=== PATIENT | male | born 1945 | race Caucasian/White ===

== ENCOUNTER 2019-03-30 10:06 | Inpatient (IN) ==
[~2019-03-30 10:06] MED LIST: ASPIRIN 325 MG TABLET PO ONE; DIAZEPAM 5 MG TABLET PO ONE; MAGNESIUM SULF RIDER 2 GM in PREMIX 1 EACH IV PRN; POTASSIUM CHLORIDE RIDER 10 MEQ in PREMIX 1 EACH IV PRN; SODIUM CHLORIDE 0.9% 1,000 ML IV SCH; diphenhydrAMINE CAP 25 MG CAPSULE PO ONE
[2019-03-30] MEDS ORDERED: DIAZEPAM 5 MG TABLET ONE (10:45)
[2019-03-30] MEDS ORDERED: diphenhydrAMINE CAP 25 MG CAPSULE ONE (10:45)
[2019-03-30] MEDS ORDERED: LIDOCAINE 1% 20 ML VIAL ONE (10:46)
[2019-03-30] MEDS ORDERED: NITROGLYCERIN DRIP 50 MG/250 ML BOTTLE IV ONE (10:46)
[2019-03-30] MEDS ORDERED: HEPARIN/NACL 0.9% 2 UNITS/ML 1,000 ML IV ONE (10:46)
[2019-03-30] MEDS ORDERED: VERAPAMIL 5 MG/2 ML VIAL ONE (10:47)
[2019-03-30 10:54] LABS: Basophils # 0.1 10*3/uL (0.0-0.2); Basophils % 0.7 % (0.0-0.8); Eosinophils # 0.2 10*3/uL (0.0-0.87); Eosinophils % 3.6 % (0.00-10.9); Hematocrit 45.9 VOL% (42.0-52.0); Hemoglobin 14.9 GM/DL (14.0-18.0); Immature Granulocytes % 0.4 %; Immature Granulocytes Absolute 0.03 #; Lymphocytes # 2.1 10*3/uL (1.4-4.0); Lymphocytes % 31.7 % (21.2-54.2); Mean Corpuscular HGB Conc 32.5 GM/DL (32-36); Mean Corpuscular Volume 86.4 FL (87-102); Mean Platelet Volume 9.5 FL (9.6-12.0); Monocytes % 11.7 % (1.7-12.7); NRBC # 0.02 10*3/uL; Neutrophils % 51.9 % (38.7-73.9); Platelet Count 179 T/CUMM (130-400); Red Blood Count 5.31 MC/CUMM (3.8-5.5); Red Cell Distribution Width 14.4 % (9.3-17.3); White Blood Count 6.8 T/CUMM (4-12)
[2019-03-30 11:05] LABS: PT Patient Result 10.6 SECS
[2019-03-30 11:30] LABS: Albumin 3.8 G/DL (3.4-5.0); Bilirubin,Total 0.6 MG/DL (0.2-1.0); Calcium 9.2 MG/DL (8.5-10.1); Osmolality,Calculated 267.2 MOS/KG (273-304); Total Protein 7.4 G/DL (6.4-8.3)
[2019-03-30] MEDS ORDERED: MIDAZOLAM 2 MG/2 ML VIAL ONE (11:57)
[2019-03-30] MEDS ORDERED: HYDROmorphone 2 MG/1 ML VIAL ONE (11:57)
[2019-03-30] MEDS ORDERED: ENOXAPARIN 30 MG/0.3 ML SYRINGE ONE (12:05)
[2019-03-30] MEDS ORDERED: BIVALIRUDIN 250 MG VIAL IV ONE (12:14)
[2019-03-30] MEDS: ATORVASTATIN 10 MG TABLET PO SCH (21:50)
[2019-03-30] MEDS: VITAMIN E 400 UNIT CAPSULE PO SCH (21:50)
[2019-03-30] MEDS: CYANOCOBALAMIN 500 MCG TABLET PO SCH (21:52)
[2019-03-30] MEDS: HEPARIN DRIP 25,000 UNITS/500 ML PREMIX IV SCH (21:52)
[2019-03-31] MEDS ORDERED: HEPARIN 5,000 UNIT/1 ML VIAL IV ONE (06:33)
[2019-03-31 08:32] LABS: Basophils # 0.1 10*3/uL (0.0-0.2); Basophils % 0.7 % (0.0-0.8); Eosinophils # 0.3 10*3/uL (0.0-0.87); Eosinophils % 3.6 % (0.00-10.9); Hematocrit 46.7 VOL% (42.0-52.0); Hemoglobin 15.1 GM/DL (14.0-18.0); Immature Granulocytes % 0.4 %; Immature Granulocytes Absolute 0.03 #; Lymphocytes # 1.9 10*3/uL (1.4-4.0); Lymphocytes % 27.1 % (21.2-54.2); Mean Corpuscular HGB Conc 32.3 GM/DL (32-36); Mean Corpuscular Volume 86.5 FL (87-102); Mean Platelet Volume 10.1 FL (9.6-12.0); Monocytes % 12.2 % (1.7-12.7); Platelet Count 173 T/CUMM (130-400); Red Cell Distribution Width 14.6 % (9.3-17.3); White Blood Count 6.9 T/CUMM (4-12)
[2019-03-31 08:59] LABS: Calcium 8.7 MG/DL (8.5-10.1); Osmolality,Calculated 268.2 MOS/KG (273-304)
[2019-03-31] MEDS ORDERED: KRILL OM DHA EPA PHOSPHO AST PO SCH (19:00)
[2019-03-31] MEDS: HEPARIN DRIP 25,000 UNITS/500 ML PREMIX IV SCH (21:58)
[2019-03-31] MEDS: ASPIRIN EC 81 MG TABLET PO SCH (22:00)
[2019-03-31] MEDS: ATORVASTATIN 10 MG TABLET PO SCH (22:01)
[2019-03-31] MEDS: CYANOCOBALAMIN 500 MCG TABLET PO SCH (22:01)
[2019-03-31] MEDS: TAMSULOSIN 0.4 MG CAPSULE PO SCH (22:01)
[2019-03-31] MEDS: EZETIMIBE 10 MG TABLET PO SCH (22:01)
[2019-03-31] MEDS: VITAMIN E 400 UNIT CAPSULE PO SCH (22:01)
[2019-04-01 01:52] LABS: Basophils % 0.6 % (0.0-0.8); Eosinophils # 0.3 10*3/uL (0.0-0.87); Hemoglobin 14.8 GM/DL (14.0-18.0); Immature Granulocytes % 0.3 %; Immature Granulocytes Absolute 0.02 #; Lymphocytes % 29.7 % (21.2-54.2); Mean Corpuscular HGB Conc 33.6 GM/DL (32-36); Mean Corpuscular Volume 84.6 FL (87-102); Mean Platelet Volume 9.8 FL (9.6-12.0); Monocytes % 13.2 % (1.7-12.7); Neutrophils % 52.2 % (38.7-73.9); Platelet Count 160 T/CUMM (130-400); Red Cell Distribution Width 14.4 % (9.3-17.3); White Blood Count 6.7 T/CUMM (4-12)
[2019-04-01 02:09] LABS: Calcium 8.3 MG/DL (8.5-10.1); Osmolality,Calculated 272.2 MOS/KG (273-304)
[2019-04-01] MEDS: CHLORHEXIDINE 0.12% ORAL RINSE 60 ML BOTTLE SWISH/SPIT SCH ×2 (08:32→20:17)
[2019-04-01] MEDS: CHLORHEXIDINE 4% SOLN 118 ML BOTTLE TOP SCH ×3 (08:36→21:42)
[2019-04-01] MEDS: HEPARIN DRIP 25,000 UNITS/500 ML PREMIX IV SCH (20:16)
[2019-04-01] MEDS: ASPIRIN EC 81 MG TABLET PO SCH (20:16)
[2019-04-01] MEDS: TAMSULOSIN 0.4 MG CAPSULE PO SCH (20:17)
[2019-04-01] MEDS: CYANOCOBALAMIN 500 MCG TABLET PO SCH (20:17)
[2019-04-01] MEDS: ATORVASTATIN 10 MG TABLET PO SCH (20:17)
[2019-04-01] MEDS: EZETIMIBE 10 MG TABLET PO SCH (20:17)
[2019-04-01] MEDS: VITAMIN E 400 UNIT CAPSULE PO SCH (20:17)
[2019-04-02] MEDS ORDERED: CEFUROXIME INJ 1,500 MG in SYRINGE 1 EACH IV ONE (00:01)
[2019-04-02] MEDS ORDERED: PAPAVERINE 60 MG/2 ML VIAL ONE (04:21)
[2019-04-02] MEDS ORDERED: TISSUE ADHESIVE 1 EACH APPLICATOR TOP ONE (04:21)
[2019-04-02] MEDS ORDERED: VANCOMYCIN 1,000 MG VIAL ONE (04:22)
[2019-04-02] MEDS: CHLORHEXIDINE 4% SOLN 118 ML BOTTLE TOP SCH (04:51)
[2019-04-02] MEDS ORDERED: DIAZEPAM 5 MG TABLET PO ONE ×2 (05:00→06:00)
[2019-04-02] MEDS ORDERED: FAMOTIDINE 20 MG TABLET PO ONE ×2 (05:00→06:00)
[2019-04-02] MEDS: SODIUM CHLORIDE 0.9% 1,000 ML IV SCH ×2 (05:27→15:03)
[2019-04-02 07:34] LABS: ABG Base Excess -2.3 MMOL/L (-2.5-2.5); ABG HCO3 21.1 MMOL/L (20-26); ABG Oxygen Saturation 99.5 % (95-100); ABG PCO2 32.4 MM HG (35-48); ABG PH 7.431 (7.35-7.45); ABG PO2 424.4 MM HG (80-95); ABG TCO2 22.1 MMOL/L (23-27); Glucose Heart Surgery 140 MG/DL (74-106); Hemoglobin Heart Surgery 14.6 G/DL (14.0-18.0); Ionized Calcium Arterial 1.26 MMOL/L (1.21-1.46); PCO2 Patient Temp Arterial 32.4 MMHG; PH Patient Temp Arterial 7.431; PO2 Patient Temp Arterial 424.4 MM HG; Patient Temperature 37 CELCIUS; Sodium Heart/CVR 132 MMOL/L (135-145)
[2019-04-02 08:18] LABS: Apearance,Urine CLEAR (Clear); Bilirubin,Urine Negative (Negative); Blood, Urine Negative (Negative); Glucose,Urine (UA) Negative (Negative); Ketones,Urine Negative (Negative); Mucus,Urine Occasional /LPF (Occasional); Nitrite,Urine Negative (Negative); Protein,Urine Negative; RBC,Urine <1 /HPF (0-4); Urine Color Yellow (Yellow); Urine Specific Gravity 1.021 (1.001-1.035); Urine Urobilinogen < 2.0 EU/DL (0.2-1.0)
[2019-04-02 09:08] LABS: Hematocrit Heart Surgery 32.2 PERCENT (42-52); Hemoglobin Heart Surgery 10.4 G/DL (14.0-18.0); PCO2 Patient Temp Venous 36.8 MM HG; PH Patient Temp Venous 7.428; PO2 Patient Temp Venous 45.9 MM HG; Potassium Heart/CVR 5.7 MMOL/L (3.5-5.1); VBG Base Excess 0.3 MEQ/L (0-4); VBG HCO3 24.5 MEQ/L (24-28); VBG Oxygen Saturation 84.6 %; VBG PCO2 38.7 MMHG (41-51); VBG PH 7.414; VBG PO2 49.1 MMHG (17-40)
[2019-04-02 09:37] LABS: Hemoglobin Heart Surgery 11.7 G/DL (14.0-18.0); PCO2 Patient Temp Venous 29.9 MM HG; PH Patient Temp Venous 7.49; VBG Base Excess -0.7 MEQ/L (0-4); VBG HCO3 22.9 MEQ/L (24-28); VBG PCO2 34.1 MMHG (41-51); VBG PH 7.445; VBG PO2 51.8 MMHG (17-40)
[2019-04-02] MEDS ORDERED: THROMBIN TOPICAL (RECOMBINANT) 5,000 UNIT VIAL TOP ONE (10:06)
[2019-04-02] MEDS ORDERED: MANNITOL 100 GM/500 ML BAG IV ONE (10:14)
[2019-04-02 10:15] LABS: ABG HCO3 23.6 MMOL/L (20-26); ABG PCO2 40.5 MM HG (35-48); ABG PH 7.381 (7.35-7.45); ABG TCO2 20.9 MMOL/L (23-27); Glucose Heart Surgery 304 MG/DL (74-106); Hematocrit Heart Surgery 40.9 PERCENT (42-52); Hemoglobin Heart Surgery 13.3 G/DL (14.0-18.0); Ionized Calcium Arterial 1.31 MMOL/L (1.21-1.46); PCO2 Patient Temp Arterial 40.5 MMHG; PH Patient Temp Arterial 7.381; Patient Temperature 37 CELCIUS; Potassium Heart/CVR 4.9 MMOL/L (3.5-5.1); Sodium Heart/CVR 128 MMOL/L (135-145)
[2019-04-02] MEDS ORDERED: PROTAMINE SULFATE 50 MG/5 ML VIAL IV ONE (10:15)
[2019-04-02] MEDS ORDERED: PROTAMINE SULFATE 250 MG/25 ML VIAL IV ONE (10:15)
[2019-04-02] MEDS ORDERED: MAGNESIUM SULFATE 5 GM/10 ML VIAL IV ONE (10:15)
[2019-04-02] MEDS ORDERED: methylPREDNISolone SOD SUC 1,000 MG/8 ML VIAL ONE (10:15)
[2019-04-02] MEDS ORDERED: HEPARIN 10,000 UNIT/10 ML VIAL ONE ×2 (10:15→11:09)
[2019-04-02] MEDS ORDERED: FUROSEMIDE 20 MG/2 ML VIAL ONE (10:15)
[2019-04-02] MEDS ORDERED: ALBUMIN 25% 25 GM/100 ML VIAL IV ONE (10:15)
[2019-04-02] MEDS ORDERED: DEXTROSE 5% KCL 20 MEQ 20 MEQ/1,000 ML BAG IV ONE (10:15)
[2019-04-02] MEDS ORDERED: SODIUM BICARBONATE 50 MEQ/50 ML VIAL IV ONE (10:15)
[2019-04-02] MEDS ORDERED: CALCIUM CHLORIDE 1,000 MG/10 ML SYRINGE IV ONE (10:44)
[2019-04-02] MEDS ORDERED: SODIUM CHLORIDE 0.9% 250 ML IV PRN (11:02)
[2019-04-02] MEDS ORDERED: CHLORHEXIDINE 4% SOLN 118 ML BOTTLE TOP PRN (11:02)
[2019-04-02] MEDS ORDERED: MAGNESIUM SULF RIDER 4 GM in PREMIX 1 EACH IV PRN (11:02)
[2019-04-02] MEDS ORDERED: CALCIUM CHLORIDE 1,000 MG/10 ML SYRINGE IV PRN (11:02)
[2019-04-02] MEDS ORDERED: ACETAMINOPHEN 650 MG SUPP RECTAL PRN (11:02)
[2019-04-02] MEDS ORDERED: MIDAZOLAM 2 MG/2 ML VIAL IV PRN (11:02)
[2019-04-02] MEDS ORDERED: ONDANSETRON 4 MG/2 ML VIAL IV PRN (11:02)
[2019-04-02] MEDS ORDERED: POTASSIUM CHLORIDE RIDER 10 MEQ in PREMIX 1 EACH IV PRN (11:02)
[2019-04-02] MEDS ORDERED: DEXTROSE 50% 25 GM/50 ML SYRINGE IV PRN ×2 (11:02)
[2019-04-02] MEDS ORDERED: SEVOFLURANE 1 UNIT/15 MINUTE INH ONE (11:09)
[2019-04-02] MEDS ORDERED: CALCIUM CHLORIDE 1,000 MG/10 ML VIAL IV ONE (11:09)
[2019-04-02] MEDS ORDERED: HEPARIN/NACL 0.9% 2 UNITS/ML 500 ML IV ONE (11:09)
[2019-04-02] MEDS ORDERED: ePHEDrine 50 MG/ML AMP ONE (11:10)
[2019-04-02] MEDS ORDERED: MIDAZOLAM 10 MG/2 ML VIAL ONE (11:10)
[2019-04-02] MEDS ORDERED: ESMOLOL 100 MG/10 ML VIAL IV ONE (11:10)
[2019-04-02] MEDS ORDERED: VECURONIUM 10 MG VIAL IV ONE (11:10)
[2019-04-02] MEDS ORDERED: PHENYLEPHRINE 10 MG/1 ML VIAL IV ONE (11:10)
[2019-04-02] MEDS ORDERED: SUFentanil 250 MCG/5 ML AMP ONE (11:10)
[2019-04-02] MEDS ORDERED: NITROGLYCERIN DRIP 50 MG/250 ML BOTTLE IV ONE (11:10)
[2019-04-02] MEDS ORDERED: SODIUM CHLORIDE 0.9% 2,000 ML IV ONE (11:11)
[2019-04-02] MEDS ORDERED: SODIUM CHLORIDE 0.9% 100 ML IV ONE (11:11)
[2019-04-02] MEDS ORDERED: SODIUM CHLORIDE 0.9% 250 ML IV ONE (11:11)
[2019-04-02] MEDS ORDERED: LACTATED RINGERS 2,000 ML IV ONE (11:11)
[2019-04-02] MEDS ORDERED: INSULIN REGULAR DRIP 100 ML IV SCH (11:30)
[2019-04-02 11:43] LABS: ABG Base Excess -3.3 MMOL/L (-2.5-2.5); ABG HCO3 21.6 MMOL/L (20-26); ABG Oxygen Saturation 97.6 % (95-100); ABG PCO2 42.7 MM HG (35-48); ABG PH 7.332 (7.35-7.45); ABG TCO2 19.8 MMOL/L (23-27); Glucose Heart Surgery 247 MG/DL (74-106); Hematocrit Heart Surgery 40.8 PERCENT (42-52); Hemoglobin Heart Surgery 13.3 G/DL (14.0-18.0); Potassium Heart/CVR 3.6 MMOL/L (3.5-5.1)
[2019-04-02 11:48] LABS: VBG Base Excess -2.8 MEQ/L (0-4); VBG HCO3 21.5 MEQ/L (24-28); VBG Oxygen Saturation 68.9 %; VBG PCO2 48.2 MMHG (41-51); VBG PH 7.305
[2019-04-02 11:53] LABS: Basophils # 0.1 10*3/uL (0.0-0.2); Basophils % 0.4 % (0.0-0.8); Eosinophils # 0.1 10*3/uL (0.0-0.87); Eosinophils % 0.8 % (0.00-10.9); Hematocrit 40.3 VOL% (42.0-52.0); Hemoglobin 12.9 GM/DL (14.0-18.0); Immature Granulocytes % 0.6 %; Immature Granulocytes Absolute 0.08 #; Lymphocytes # 1.2 10*3/uL (1.4-4.0); Lymphocytes % 8.9 % (21.2-54.2); Mean Corpuscular Volume 88.6 FL (87-102); Mean Platelet Volume 9.4 FL (9.6-12.0); Monocytes % 6.3 % (1.7-12.7); Platelet Count 151 T/CUMM (130-400); Red Blood Count 4.55 MC/CUMM (3.8-5.5); Red Cell Distribution Width 14.6 % (9.3-17.3)
[2019-04-02 12:03] LABS: Blood Urea Nitrogen 9 MG/DL (7-18); Calcium 9.2 MG/DL (8.5-10.1); Glucose 226 MG/DL (74-106)
[2019-04-02] MEDS ORDERED: PHENYLEPHRINE DRIP 40 MG/250 ML PREMIX IV PRN (12:04)
[2019-04-02 12:05] LABS: INR 1.1; PT Patient Result 12.2 SECS; Partial Thromboplastin Time 26.4 SECS (0-40)
[2019-04-02] MEDS: ALBUMIN 5% 12.5 GM in PREMIX 1 EACH IV PRN ×6 (12:05→17:27)
[2019-04-02] MEDS: SODIUM CHLORIDE 0.45% 1,000 ML IV SCH ×3 (12:05→23:33)
[2019-04-02] MEDS: POTASSIUM CHLORIDE RIDER 20 MEQ in PREMIX 1 EACH IV PRN (12:23)
[2019-04-02] MEDS: INSULIN REGULAR 100 UNIT/ML IV PRN ×2 (14:22→16:43)
[2019-04-02] MEDS ORDERED: LACTATED RINGERS 500 ML IV ONE (14:25)
[2019-04-02] MEDS: CHLORHEXIDINE 0.12% ORAL RINSE 60 ML BOTTLE SWISH/SPIT SCH ×2 (15:04→21:28)
[2019-04-02 16:14] LABS: ABG Base Excess -1.5 MMOL/L (-2.5-2.5); ABG HCO3 23.1 MMOL/L (20-26); ABG PCO2 38.8 MM HG (35-48); ABG PH 7.385 (7.35-7.45); ABG TCO2 20.7 MMOL/L (23-27); Glucose Heart Surgery 173 MG/DL (74-106); Hematocrit Heart Surgery 35.8 PERCENT (42-52); Hemoglobin Heart Surgery 11.6 G/DL (14.0-18.0); Potassium Heart/CVR 4.2 MMOL/L (3.5-5.1)
[2019-04-02] MEDS ORDERED: ASPIRIN 325 MG TABLET PO ONE (18:02)
[2019-04-02] MEDS: CEFUROXIME INJ 1,500 MG in SYRINGE 1 EACH IV SCH (18:40)
[2019-04-02] MEDS: MORPHINE 10 MG/1 ML VIAL IV PRN ×2 (21:31→23:30)
[2019-04-03] MEDS: SODIUM CHLORIDE 0.45% 1,000 ML IV SCH ×2 (00:12→07:54)
[2019-04-03] MEDS: ALBUMIN 5% 12.5 GM in PREMIX 1 EACH IV PRN (03:46)
[2019-04-03 04:47] LABS: Basophils % 0.1 % (0.0-0.8); Hemoglobin 9.4 GM/DL (14.0-18.0); Immature Granulocytes % 0.5 %; Immature Granulocytes Absolute 0.07 #; Lymphocytes % 7.1 % (21.2-54.2); Mean Corpuscular HGB Conc 31.3 GM/DL (32-36); Mean Platelet Volume 9.8 FL (9.6-12.0); Monocytes % 9.9 % (1.7-12.7); Neutrophils % 82.4 % (38.7-73.9); Platelet Count 125 T/CUMM (130-400); Red Blood Count 3.37 MC/CUMM (3.8-5.5); Red Cell Distribution Width 14.8 % (9.3-17.3); White Blood Count 13.7 T/CUMM (4-12)
[2019-04-03 05:03] LABS: Calcium 7.9 MG/DL (8.5-10.1); Osmolality,Calculated 271.8 MOS/KG (273-304)
[2019-04-03] MEDS: POTASSIUM CHLORIDE RIDER 20 MEQ in PREMIX 1 EACH IV PRN ×2 (05:12→06:06)
[2019-04-03] MEDS: MAGNESIUM SULF RIDER 2 GM in PREMIX 1 EACH IV PRN ×2 (05:28→06:42)
[2019-04-03 05:30] LABS: Band Neutrophils 2 % (0-10); Hypochromasia 1+; Lymphocytes 9 % (20-55); Platelet Estimate Decreased; Segmented Neutrophils 82 % (50-85); Total Cells Counted 100
[2019-04-03] MEDS: MORPHINE 10 MG/1 ML VIAL IV PRN (07:20)
[2019-04-03] MEDS: CEFUROXIME INJ 1,500 MG in SYRINGE 1 EACH IV SCH ×2 (07:30→18:46)
[2019-04-03] MEDS: INSULIN REGULAR 100 UNIT/ML SUBCUT SCH ×4 (09:11→21:40)
[2019-04-03] MEDS: ASPIRIN EC 325 MG TABLET PO SCH (09:50)
[2019-04-03] MEDS: FUROSEMIDE 40 MG TABLET PO SCH (09:51)
[2019-04-03] MEDS: LANSOPRAZOLE ODT 30 MG TABLET PO SCH (09:51)
[2019-04-03] MEDS: CHLORHEXIDINE 0.12% ORAL RINSE 60 ML BOTTLE SWISH/SPIT SCH ×2 (09:52→21:39)
[2019-04-03] MEDS ORDERED: FUROSEMIDE 40 MG/4 ML VIAL IV ONE (09:55)
[2019-04-03] MEDS: CLOPIDOGREL 75 MG TABLET PO SCH (10:07)
[2019-04-03] MEDS: MORPHINE 4 MG/1 ML VIAL IV PRN (12:22)
[2019-04-03] MEDS: ASCORBIC ACID 500 MG TABLET PO SCH ×2 (12:22→21:40)
[2019-04-03] MEDS: LEVALBUTEROL 0.31 MG/3 ML NEB RESP TX SCH ×4 (12:40→23:13)
[2019-04-03] MEDS ORDERED: LEVALBUTEROL 0.31 MG/3 ML NEB RESP TX ONE (17:23)
[2019-04-03] MEDS ORDERED: ALBUTEROL 0.63 MG/3 ML NEB RESP TX ONE (17:23)
[2019-04-03] MEDS ORDERED: APPLE CIDER VINEGAR 600 MG PO SCH (19:00)
[2019-04-03] MEDS: ATORVASTATIN 40 MG TABLET PO SCH (21:40)
[2019-04-04] MEDS: LEVALBUTEROL 0.31 MG/3 ML NEB RESP TX SCH ×6 (02:29→23:21)
[2019-04-04 05:38] LABS: Basophils % 0.1 % (0.0-0.8); Hematocrit 30.9 VOL% (42.0-52.0); Hemoglobin 9.7 GM/DL (14.0-18.0); Immature Granulocytes % 0.7 %; Immature Granulocytes Absolute 0.11 #; Lymphocytes % 6.6 % (21.2-54.2); Mean Corpuscular HGB Conc 31.4 GM/DL (32-36); Mean Platelet Volume 10.3 FL (9.6-12.0); Monocytes % 10.5 % (1.7-12.7); Neutrophils % 82.1 % (38.7-73.9); Platelet Count 134 T/CUMM (130-400); Red Blood Count 3.47 MC/CUMM (3.8-5.5); Red Cell Distribution Width 15.1 % (9.3-17.3); White Blood Count 15.5 T/CUMM (4-12)
[2019-04-04 05:55] LABS: Calcium 8.1 MG/DL (8.5-10.1); Osmolality,Calculated 266.7 MOS/KG (273-304)
[2019-04-04] MEDS: FUROSEMIDE 40 MG TABLET PO SCH (08:18)
[2019-04-04] MEDS: CLOPIDOGREL 75 MG TABLET PO SCH (08:18)
[2019-04-04] MEDS: ASCORBIC ACID 500 MG TABLET PO SCH ×2 (08:18→21:35)
[2019-04-04] MEDS: ASPIRIN EC 325 MG TABLET PO SCH (08:18)
[2019-04-04] MEDS: CHLORHEXIDINE 0.12% ORAL RINSE 60 ML BOTTLE SWISH/SPIT SCH ×2 (08:19→21:35)
[2019-04-04] MEDS: LANSOPRAZOLE ODT 30 MG TABLET PO SCH (08:19)
[2019-04-04] MEDS: INSULIN REGULAR 100 UNIT/ML SUBCUT SCH ×4 (08:19→21:36)
[2019-04-04] MEDS: ZALEPLON 5 MG CAPSULE PO PRN (21:34)
[2019-04-04] MEDS: ATORVASTATIN 40 MG TABLET PO SCH (21:35)
[2019-04-05] MEDS: LEVALBUTEROL 0.31 MG/3 ML NEB RESP TX SCH ×6 (03:47→23:48)
[2019-04-05 05:24] LABS: Basophils % 0.1 % (0.0-0.8); Eosinophils % 0.2 % (0.00-10.9); Hematocrit 32.4 VOL% (42.0-52.0); Hemoglobin 10.6 GM/DL (14.0-18.0); Immature Granulocytes Absolute 0.14 #; Lymphocytes # 1.5 10*3/uL (1.4-4.0); Lymphocytes % 11.3 % (21.2-54.2); Mean Corpuscular HGB Conc 32.7 GM/DL (32-36); Mean Corpuscular Volume 87.8 FL (87-102); Mean Platelet Volume 10.6 FL (9.6-12.0); Monocytes % 12.7 % (1.7-12.7); Neutrophils % 74.7 % (38.7-73.9); Platelet Count 149 T/CUMM (130-400); Red Blood Count 3.69 MC/CUMM (3.8-5.5); Red Cell Distribution Width 15.1 % (9.3-17.3); White Blood Count 13.7 T/CUMM (4-12)
[2019-04-05 05:51] LABS: Calcium 8.2 MG/DL (8.5-10.1)
[2019-04-05] MEDS: CHLORHEXIDINE 0.12% ORAL RINSE 60 ML BOTTLE SWISH/SPIT SCH ×2 (08:18→20:45)
[2019-04-05] MEDS: INSULIN REGULAR 100 UNIT/ML SUBCUT SCH ×4 (08:18→20:45)
[2019-04-05] MEDS: ASCORBIC ACID 500 MG TABLET PO SCH ×2 (08:19→20:45)
[2019-04-05] MEDS: CLOPIDOGREL 75 MG TABLET PO SCH (08:19)
[2019-04-05] MEDS: ASPIRIN EC 325 MG TABLET PO SCH (08:19)
[2019-04-05] MEDS: FUROSEMIDE 40 MG TABLET PO SCH (08:19)
[2019-04-05] MEDS: LANSOPRAZOLE ODT 30 MG TABLET PO SCH (08:19)
[2019-04-05] MEDS ORDERED: FUROSEMIDE 40 MG/4 ML VIAL IV ONE (17:13)
[2019-04-05] MEDS: methylPREDNISolone SOD SUC 40 MG/1 ML VIAL IV SCH (17:42)
[2019-04-05] MEDS ORDERED: METOPROLOL TARTRATE 5 MG/5 ML VIAL IV ONE (19:22)
[2019-04-05] MEDS: METOPROLOL TARTRATE 25 MG TABLET PO SCH (20:44)
[2019-04-05] MEDS: ATORVASTATIN 40 MG TABLET PO SCH (20:45)
[2019-04-06] MEDS: ZALEPLON 5 MG CAPSULE PO PRN ×2 (00:04→22:43)
[2019-04-06] MEDS: methylPREDNISolone SOD SUC 40 MG/1 ML VIAL IV SCH ×3 (02:01→17:01)
[2019-04-06] MEDS: LEVALBUTEROL 0.31 MG/3 ML NEB RESP TX SCH ×6 (03:26→23:32)
[2019-04-06 04:31] LABS: Basophils % 0.1 % (0.0-0.8); Hematocrit 34.1 VOL% (42.0-52.0); Hemoglobin 11.4 GM/DL (14.0-18.0); Immature Granulocytes % 1.6 %; Immature Granulocytes Absolute 0.19 #; Lymphocytes # 1.3 10*3/uL (1.4-4.0); Lymphocytes % 11.4 % (21.2-54.2); Mean Corpuscular HGB Conc 33.4 GM/DL (32-36); Mean Corpuscular Volume 85.5 FL (87-102); Mean Platelet Volume 10.7 FL (9.6-12.0); Monocytes % 7.9 % (1.7-12.7); Platelet Count 195 T/CUMM (130-400); Red Blood Count 3.99 MC/CUMM (3.8-5.5); Red Cell Distribution Width 14.6 % (9.3-17.3); White Blood Count 11.7 T/CUMM (4-12)
[2019-04-06 04:56] LABS: Calcium 8.9 MG/DL (8.5-10.1); Osmolality,Calculated 269.7 MOS/KG (273-304)
[2019-04-06] MEDS: FUROSEMIDE 40 MG TABLET PO SCH (09:04)
[2019-04-06] MEDS: ASCORBIC ACID 500 MG TABLET PO SCH ×2 (09:04→22:38)
[2019-04-06] MEDS: ASPIRIN EC 325 MG TABLET PO SCH (09:04)
[2019-04-06] MEDS: METOPROLOL TARTRATE 25 MG TABLET PO SCH ×2 (09:04→22:38)
[2019-04-06] MEDS: CHLORHEXIDINE 0.12% ORAL RINSE 60 ML BOTTLE SWISH/SPIT SCH ×2 (09:05→22:47)
[2019-04-06] MEDS: CLOPIDOGREL 75 MG TABLET PO SCH (09:05)
[2019-04-06] MEDS: INSULIN REGULAR 100 UNIT/ML SUBCUT SCH ×4 (09:05→22:39)
[2019-04-06] MEDS: LANSOPRAZOLE ODT 30 MG TABLET PO SCH (09:12)
[2019-04-06] MEDS: ATORVASTATIN 40 MG TABLET PO SCH (22:38)
[2019-04-07] MEDS: methylPREDNISolone SOD SUC 40 MG/1 ML VIAL IV SCH ×3 (03:07→21:16)
[2019-04-07] MEDS: LEVALBUTEROL 0.31 MG/3 ML NEB RESP TX SCH ×6 (03:54→23:05)
[2019-04-07 04:47] LABS: Basophils # 0.1 10*3/uL (0.0-0.2); Basophils % 0.2 % (0.0-0.8); Eosinophils # 0.1 10*3/uL (0.0-0.87); Eosinophils % 0.3 % (0.00-10.9); Hemoglobin 11.2 GM/DL (14.0-18.0); Immature Granulocytes % 2.5 %; Immature Granulocytes Absolute 0.51 #; Mean Corpuscular HGB Conc 32.9 GM/DL (32-36); Mean Corpuscular Volume 86.1 FL (87-102); Mean Platelet Volume 9.8 FL (9.6-12.0); Monocytes % 8.4 % (1.7-12.7); Neutrophils % 78.6 % (38.7-73.9); Platelet Count 221 T/CUMM (130-400); Red Blood Count 3.95 MC/CUMM (3.8-5.5); Red Cell Distribution Width 14.6 % (9.3-17.3); White Blood Count 20.2 T/CUMM (4-12)
[2019-04-07 05:02] LABS: Calcium 8.7 MG/DL (8.5-10.1); Osmolality,Calculated 273.2 MOS/KG (273-304)
[2019-04-07 05:10] LABS: Eosinophils 1 % (0-10); Lymphocytes 10 % (20-55); Platelet Estimate Normal; Segmented Neutrophils 84 % (50-85); Total Cells Counted 100
[2019-04-07] MEDS: INSULIN REGULAR 100 UNIT/ML SUBCUT SCH ×4 (09:35→21:15)
[2019-04-07] MEDS: ASCORBIC ACID 500 MG TABLET PO SCH ×2 (09:36→21:16)
[2019-04-07] MEDS: CLOPIDOGREL 75 MG TABLET PO SCH (09:36)
[2019-04-07] MEDS: ASPIRIN EC 325 MG TABLET PO SCH (09:36)
[2019-04-07] MEDS: METOPROLOL TARTRATE 25 MG TABLET PO SCH ×2 (09:37→21:16)
[2019-04-07] MEDS: LANSOPRAZOLE ODT 30 MG TABLET PO SCH (09:40)
[2019-04-07] MEDS: FUROSEMIDE 40 MG TABLET PO SCH (09:40)
[2019-04-07] MEDS: CHLORHEXIDINE 0.12% ORAL RINSE 60 ML BOTTLE SWISH/SPIT SCH ×2 (09:40→21:22)
[2019-04-07] MEDS: MORPHINE 4 MG/1 ML VIAL IV PRN (21:17)
[2019-04-07] MEDS: ATORVASTATIN 40 MG TABLET PO SCH (21:17)
[2019-04-08] MEDS: LEVALBUTEROL 0.31 MG/3 ML NEB RESP TX SCH ×3 (03:12→11:40)
[2019-04-08 04:49] LABS: Basophils # 0.1 10*3/uL (0.0-0.2); Basophils % 0.4 % (0.0-0.8); Eosinophils % 0.2 % (0.00-10.9); Hematocrit 33.3 VOL% (42.0-52.0); Hemoglobin 11.1 GM/DL (14.0-18.0); Immature Granulocytes % 5.6 %; Immature Granulocytes Absolute 1.05 #; Lymphocytes % 10.7 % (21.2-54.2); Mean Corpuscular HGB Conc 33.3 GM/DL (32-36); Mean Corpuscular Volume 85.4 FL (87-102); Mean Platelet Volume 9.9 FL (9.6-12.0); Monocytes % 8.9 % (1.7-12.7); NRBC # 0.03 10*3/uL; Neutrophils % 74.2 % (38.7-73.9); Platelet Count 256 T/CUMM (130-400); Red Cell Distribution Width 14.7 % (9.3-17.3); White Blood Count 18.8 T/CUMM (4-12)
[2019-04-08 05:08] LABS: Calcium 8.5 MG/DL (8.5-10.1); Osmolality,Calculated 274.2 MOS/KG (273-304)
[2019-04-08 06:30] LABS: Band Neutrophils 1 % (0-10); Lymphocytes 12 % (20-55); Segmented Neutrophils 76 % (50-85); Total Cells Counted 100
[2019-04-08 06:31] LABS: Platelet Estimate Normal; Polychromasia 1+; Reactive Lymphocytes Few
[2019-04-08] MEDS: INSULIN REGULAR 100 UNIT/ML SUBCUT SCH ×2 (09:13→12:18)
[2019-04-08] MEDS: methylPREDNISolone SOD SUC 40 MG/1 ML VIAL IV SCH (10:01)
[2019-04-08] MEDS: METOPROLOL TARTRATE 25 MG TABLET PO SCH (10:01)
[2019-04-08] MEDS: CLOPIDOGREL 75 MG TABLET PO SCH (10:02)
[2019-04-08] MEDS: ASCORBIC ACID 500 MG TABLET PO SCH (10:02)
[2019-04-08] MEDS: ASPIRIN EC 325 MG TABLET PO SCH (10:02)
[2019-04-08] MEDS: CHLORHEXIDINE 0.12% ORAL RINSE 60 ML BOTTLE SWISH/SPIT SCH (10:02)
[2019-04-08] MEDS: LANSOPRAZOLE ODT 30 MG TABLET PO SCH (10:02)
[2019-04-08] MEDS: FUROSEMIDE 40 MG TABLET PO SCH (10:02)
[2019-04-08] MEDS ORDERED: BUDESONIDE/FORMOTEROL 160-4.5 INHALER 6 GM INH SCH (10:30)
[2019-04-08 12:09] VITALS: BP 115/63
== END 2019-04-08 12:52 | disposition home health service (06) | DRG 233 ==
LOC: N.CL 10:06 → N.TELES 15:47 → N.CVR 04-02 07:23 → N.TELES 04-03 11:55
PROVIDERS: ADMIT Internal Medicine Cardiovascular Disease; ATTEND Internal Medicine Cardiovascular Disease

== ENCOUNTER 2019-04-10 04:01 | Inpatient (IN) ==
[2019-04-10] MEDS ORDERED: ALBUTEROL/IPRATROPIUM 3 ML NEB RESP TX STA (04:20)
[2019-04-10] MEDS ORDERED: methylPREDNISolone SOD SUC 125 MG/2 ML VIAL IV STA (04:20)
[2019-04-10 04:39] LABS: Basophils # 0.1 10*3/uL (0.0-0.2); Basophils % 0.4 % (0.0-0.8); Eosinophils # 0.2 10*3/uL (0.0-0.87); Eosinophils % 1.3 % (0.00-10.9); Hematocrit 35.9 VOL% (42.0-52.0); Immature Granulocytes % 6.4 %; Immature Granulocytes Absolute 1.09 #; Lymphocytes # 1.7 10*3/uL (1.4-4.0); Mean Corpuscular HGB Conc 33.4 GM/DL (32-36); Mean Corpuscular Volume 85.5 FL (87-102); Monocytes % 7.9 % (1.7-12.7); NRBC # 0.03 10*3/uL; Platelet Count 273 T/CUMM (130-400); Red Cell Distribution Width 14.7 % (9.3-17.3); White Blood Count 16.9 T/CUMM (4-12)
[2019-04-10 05:02] LABS: Albumin 2.8 G/DL (3.4-5.0); Bilirubin,Total 0.9 MG/DL (0.2-1.0); Calcium 8.3 MG/DL (8.5-10.1); Osmolality,Calculated 271.7 MOS/KG (273-304); Total Protein 6.3 G/DL (6.4-8.3)
[2019-04-10 05:49] LABS: Anisocytosis Slight; Band Neutrophils 2 % (0-10); Eosinophils 2 % (0-10); Lymphocytes 5 % (20-55); Metamyelocytes 1 %; Nucleated Red Blood Cells 1 (0-5); Segmented Neutrophils 83 % (50-85); Total Cells Counted 100; Toxic Granulation 1+
[2019-04-10 05:50] LABS: Polychromasia Few
[2019-04-10 05:51] LABS: Platelet Estimate Normal
[2019-04-10] MEDS ORDERED: diphenhydrAMINE CAP 25 MG CAPSULE PO PRN (09:07)
[2019-04-10] MEDS ORDERED: ZALEPLON 5 MG CAPSULE PO PRN (09:07)
[2019-04-10] MEDS ORDERED: ACETAMINOPHEN 325 MG TABLET PO PRN (09:07)
[2019-04-10] MEDS ORDERED: ONDANSETRON 4 MG/2 ML VIAL IV PRN (09:07)
[2019-04-10] MEDS ORDERED: DOCUSATE SODIUM 100 MG CAPSULE PO PRN (09:07)
[2019-04-10] MEDS ORDERED: guaiFENesin/DM ER 600-30 MG TABLET PO PRN (09:07)
[2019-04-10] MEDS ORDERED: ENOXAPARIN 40 MG/0.4 ML SYRINGE SUBCUT SCH (09:30)
[2019-04-10] MEDS: PANTOPRAZOLE 40 MG TABLET PO SCH (10:41)
[2019-04-10] MEDS: CLOPIDOGREL 75 MG TABLET PO SCH (10:41)
[2019-04-10] MEDS: cefTRIAXone 2,000 MG in SYRINGE 1 EACH IV SCH (10:44)
[2019-04-10] MEDS: AZITHROMYCIN INJ 500 MG in SODIUM CHLORIDE 0.9% 250 ML IV SCH (10:48)
[2019-04-10] MEDS: SODIUM CHLORIDE 0.9% 1,000 ML IV SCH (10:50)
[2019-04-10] MEDS: ALBUTEROL/IPRATROPIUM 3 ML NEB RESP TX SCH ×2 (14:01→19:50)
[2019-04-10] MEDS ORDERED: GLUCOSAMINE CHONDROIT VIT C MN PO SCH (19:00)
[2019-04-10] MEDS: METOPROLOL TARTRATE 25 MG TABLET PO SCH (21:50)
[2019-04-10] MEDS: OMEGA 3 ACID ETHYL ESTERS 1 GM CAPSULE PO SCH (21:50)
[2019-04-10] MEDS: VITAMIN E 400 UNIT CAPSULE PO SCH (21:50)
[2019-04-10] MEDS: EZETIMIBE 10 MG TABLET PO SCH (21:50)
[2019-04-10] MEDS: TAMSULOSIN 0.4 MG CAPSULE PO SCH (21:50)
[2019-04-10] MEDS: CYANOCOBALAMIN 500 MCG TABLET PO SCH (21:50)
[2019-04-11] MEDS: ALBUTEROL/IPRATROPIUM 3 ML NEB RESP TX SCH ×4 (01:18→19:32)
[2019-04-11] MEDS: SODIUM CHLORIDE 0.9% 1,000 ML IV SCH (02:10)
[2019-04-11 04:50] LABS: Basophils % 0.2 % (0.0-0.8); Eosinophils # 0.4 10*3/uL (0.0-0.87); Eosinophils % 2.1 % (0.00-10.9); Hematocrit 29.8 VOL% (42.0-52.0); Hemoglobin 9.8 GM/DL (14.0-18.0); Immature Granulocytes % 4.4 %; Immature Granulocytes Absolute 0.76 #; Lymphocytes # 2.2 10*3/uL (1.4-4.0); Lymphocytes % 12.6 % (21.2-54.2); Mean Corpuscular HGB Conc 32.9 GM/DL (32-36); Mean Corpuscular Volume 86.4 FL (87-102); Mean Platelet Volume 9.8 FL (9.6-12.0); Monocytes % 7.3 % (1.7-12.7); NRBC # 0.02 10*3/uL; Neutrophils % 73.4 % (38.7-73.9); Platelet Count 275 T/CUMM (130-400); Red Blood Count 3.45 MC/CUMM (3.8-5.5); Red Cell Distribution Width 14.8 % (9.3-17.3); White Blood Count 17.3 T/CUMM (4-12)
[2019-04-11 05:18] LABS: Albumin 2.4 G/DL (3.4-5.0); Bilirubin,Total 0.8 MG/DL (0.2-1.0); Calcium 7.2 MG/DL (8.5-10.1); Osmolality,Calculated 269.4 MOS/KG (273-304); Total Protein 5.4 G/DL (6.4-8.3)
[2019-04-11 06:00] LABS: Anisocytosis 1+; Eosinophils 2 % (0-10); Lymphocytes 7 % (20-55); Platelet Estimate Adequate; Polychromasia 1+; Segmented Neutrophils 90 % (50-85); Total Cells Counted 100
[2019-04-11] MEDS: CYANOCOBALAMIN 500 MCG TABLET PO SCH ×2 (09:12→22:30)
[2019-04-11] MEDS: METOPROLOL TARTRATE 25 MG TABLET PO SCH ×2 (09:13→22:30)
[2019-04-11] MEDS: CLOPIDOGREL 75 MG TABLET PO SCH (09:13)
[2019-04-11] MEDS: PANTOPRAZOLE 40 MG TABLET PO SCH (09:13)
[2019-04-11] MEDS: cefTRIAXone 2,000 MG in SYRINGE 1 EACH IV SCH ×2 (09:15→10:35)
[2019-04-11] MEDS: AZITHROMYCIN INJ 500 MG in SODIUM CHLORIDE 0.9% 250 ML IV SCH (10:36)
[2019-04-11] MEDS: DOCUSATE SODIUM 100 MG CAPSULE PO SCH ×2 (11:51→22:30)
[2019-04-11] MEDS: ENOXAPARIN 40 MG/0.4 ML SYRINGE SUBCUT SCH (16:50)
[2019-04-11] MEDS: VITAMIN E 400 UNIT CAPSULE PO SCH (22:29)
[2019-04-11] MEDS: OMEGA 3 ACID ETHYL ESTERS 1 GM CAPSULE PO SCH (22:29)
[2019-04-11] MEDS: EZETIMIBE 10 MG TABLET PO SCH (22:29)
[2019-04-11] MEDS: TAMSULOSIN 0.4 MG CAPSULE PO SCH (22:30)
[2019-04-12] MEDS: ALBUTEROL/IPRATROPIUM 3 ML NEB RESP TX SCH ×3 (00:30→19:43)
[2019-04-12 04:27] LABS: Basophils % 0.2 % (0.0-0.8); Eosinophils # 0.4 10*3/uL (0.0-0.87); Hematocrit 31.8 VOL% (42.0-52.0); Hemoglobin 10.2 GM/DL (14.0-18.0); Immature Granulocytes Absolute 0.37 #; Lymphocytes # 1.2 10*3/uL (1.4-4.0); Lymphocytes % 6.6 % (21.2-54.2); Mean Corpuscular HGB Conc 32.1 GM/DL (32-36); Mean Corpuscular Volume 87.1 FL (87-102); Mean Platelet Volume 9.2 FL (9.6-12.0); Monocytes % 6.3 % (1.7-12.7); Neutrophils % 82.9 % (38.7-73.9); Platelet Count 287 T/CUMM (130-400); Red Blood Count 3.65 MC/CUMM (3.8-5.5); Red Cell Distribution Width 14.8 % (9.3-17.3); White Blood Count 18.8 T/CUMM (4-12)
[2019-04-12 04:52] LABS: Osmolality,Calculated 260.9 MOS/KG (273-304)
[2019-04-12] MEDS: DOCUSATE SODIUM 100 MG CAPSULE PO SCH ×2 (08:32→21:02)
[2019-04-12] MEDS: CLOPIDOGREL 75 MG TABLET PO SCH (08:32)
[2019-04-12] MEDS: PANTOPRAZOLE 40 MG TABLET PO SCH (08:32)
[2019-04-12] MEDS: CYANOCOBALAMIN 500 MCG TABLET PO SCH (08:32)
[2019-04-12] MEDS: METOPROLOL TARTRATE 25 MG TABLET PO SCH ×2 (08:32→21:00)
[2019-04-12] MEDS: cefTRIAXone 2,000 MG in SYRINGE 1 EACH IV SCH (12:12)
[2019-04-12] MEDS: AZITHROMYCIN INJ 500 MG in SODIUM CHLORIDE 0.9% 250 ML IV SCH (12:13)
[2019-04-12] MEDS: ENOXAPARIN 40 MG/0.4 ML SYRINGE SUBCUT SCH (16:33)
[2019-04-12] MEDS: TAMSULOSIN 0.4 MG CAPSULE PO SCH (21:00)
[2019-04-12] MEDS: VITAMIN E 400 UNIT CAPSULE PO SCH (21:01)
[2019-04-12] MEDS: OMEGA 3 ACID ETHYL ESTERS 1 GM CAPSULE PO SCH (21:01)
[2019-04-12] MEDS: EZETIMIBE 10 MG TABLET PO SCH (21:02)
[2019-04-13] MEDS: ALBUTEROL/IPRATROPIUM 3 ML NEB RESP TX SCH ×3 (00:48→14:29)
[2019-04-13] MEDS: METOPROLOL TARTRATE 25 MG TABLET PO SCH (08:04)
[2019-04-13] MEDS: CYANOCOBALAMIN 500 MCG TABLET PO SCH (08:05)
[2019-04-13] MEDS: CLOPIDOGREL 75 MG TABLET PO SCH (08:05)
[2019-04-13] MEDS: PANTOPRAZOLE 40 MG TABLET PO SCH (08:05)
[2019-04-13] MEDS: DOCUSATE SODIUM 100 MG CAPSULE PO SCH (08:05)
[2019-04-13] MEDS: cefTRIAXone 2,000 MG in SYRINGE 1 EACH IV SCH (12:47)
[2019-04-13] MEDS: AZITHROMYCIN INJ 500 MG in SODIUM CHLORIDE 0.9% 250 ML IV SCH (12:48)
[2019-04-13 13:14] VITALS: BP 105/58
== END 2019-04-13 15:18 | disposition home or self-care (01) | DRG 178 ==
LOC: EDUNIT# → EDBD → N.ED 04:01 → N.EDINP 08:50 → N.5E 09:55
PROVIDERS: ADMIT Hospitalist; ATTEND Hospitalist

== ENCOUNTER 2019-04-16 18:21 | Inpatient (IN) ==
[2019-04-16] MEDS ORDERED: SODIUM CHLORIDE 0.9% 1,000 ML IV STA (18:53)
[2019-04-16] MEDS ORDERED: ADENOSINE 6 MG/2 ML VIAL IV STA (18:53)
[2019-04-16 19:04] LABS: Basophils % 0.3 % (0.0-0.8); Eosinophils # 0.2 10*3/uL (0.0-0.87); Eosinophils % 1.4 % (0.00-10.9); Hematocrit 35.5 VOL% (42.0-52.0); Hemoglobin 11.7 GM/DL (14.0-18.0); Immature Granulocytes % 1.2 %; Immature Granulocytes Absolute 0.15 #; Lymphocytes # 1.1 10*3/uL (1.4-4.0); Lymphocytes % 8.4 % (21.2-54.2); Mean Corpuscular Volume 85.5 FL (87-102); Monocytes % 10.4 % (1.7-12.7); Neutrophils % 78.3 % (38.7-73.9); Platelet Count 328 T/CUMM (130-400); Red Blood Count 4.15 MC/CUMM (3.8-5.5); Red Cell Distribution Width 14.6 % (9.3-17.3); White Blood Count 12.5 T/CUMM (4-12)
[2019-04-16 19:13] LABS: PT Patient Result 10.7 SECS
[2019-04-16 19:55] LABS: Albumin 2.7 G/DL (3.4-5.0); Bilirubin,Total 0.6 MG/DL (0.2-1.0); Calcium 8.2 MG/DL (8.5-10.1); Osmolality,Calculated 261.9 MOS/KG (273-304); Thyroid Stimulating Hormone 3.28 uIU/ml (0.358-3.74); Total Protein 5.8 G/DL (6.4-8.3)
[2019-04-16] MEDS ORDERED: ACETAMINOPHEN 325 MG TABLET PO PRN (20:28)
[2019-04-16] MEDS ORDERED: DOCUSATE SODIUM 100 MG CAPSULE PO PRN (20:28)
[2019-04-16] MEDS ORDERED: ONDANSETRON 4 MG/2 ML VIAL IV PRN (20:28)
[2019-04-16] MEDS ORDERED: GLUCAGON 1 MG VIAL IM PRN (20:28)
[2019-04-16] MEDS ORDERED: DEXTROSE 50% 25 GM/50 ML VIAL IV PRN (20:28)
[2019-04-16] MEDS ORDERED: SODIUM CHLORIDE 0.9% 1,000 ML IV SCH (20:30)
[2019-04-16] MEDS ORDERED: ZALEPLON 5 MG CAPSULE PO PRN (20:37)
[2019-04-16] MEDS ORDERED: guaiFENesin/DM ER 600-30 MG TABLET PO PRN (20:37)
[2019-04-16 23:20] LABS: Apearance,Urine CLEAR (Clear); Bilirubin,Urine Negative (Negative); Blood, Urine Negative (Negative); Glucose,Urine (UA) Negative (Negative); Ketones,Urine Negative (Negative); Nitrite,Urine Negative (Negative); Protein,Urine Negative; RBC,Urine 1 /HPF (0-4); Urine Color Yellow (Yellow); Urine Specific Gravity 1.005 (1.001-1.035); Urine Urobilinogen < 2.0 EU/DL (0.2-1.0); WBC,Urine 1 /HPF (0-6)
[2019-04-16 23:55] LABS: Barbiturates Screen,Urine Negative (Negative); Benzodiazepines Screen,Urine Negative (Negative); Cannabinoid Screen,Urine Negative (Negative); Opiate Screen,Urine Negative (Negative); Phencyclidine Screen,Urine Negative (Negative)
[2019-04-17] MEDS: TAMSULOSIN 0.4 MG CAPSULE PO SCH ×2 (00:29→21:23)
[2019-04-17] MEDS: METOPROLOL TARTRATE 25 MG TABLET PO SCH ×3 (00:30→21:23)
[2019-04-17] MEDS: EZETIMIBE 10 MG TABLET PO SCH ×2 (00:30→21:23)
[2019-04-17] MEDS: ENOXAPARIN 40 MG/0.4 ML SYRINGE SUBCUT SCH ×2 (00:30→21:22)
[2019-04-17 01:56] LABS: Basophils % 0.4 % (0.0-0.8); Eosinophils # 0.3 10*3/uL (0.0-0.87); Hematocrit 30.5 VOL% (42.0-52.0); Hemoglobin 9.9 GM/DL (14.0-18.0); Immature Granulocytes % 1.1 %; Immature Granulocytes Absolute 0.09 #; Lymphocytes # 1.3 10*3/uL (1.4-4.0); Lymphocytes % 14.6 % (21.2-54.2); Mean Corpuscular HGB Conc 32.5 GM/DL (32-36); Mean Corpuscular Volume 86.2 FL (87-102); Mean Platelet Volume 9.2 FL (9.6-12.0); Monocytes % 11.6 % (1.7-12.7); Neutrophils % 69.3 % (38.7-73.9); Platelet Count 304 T/CUMM (130-400); Red Blood Count 3.54 MC/CUMM (3.8-5.5); Red Cell Distribution Width 14.7 % (9.3-17.3); White Blood Count 8.5 T/CUMM (4-12)
[2019-04-17 02:06] LABS: Osmolality,Calculated 265.5 MOS/KG (273-304)
[2019-04-17] MEDS: LANSOPRAZOLE ODT 30 MG TABLET PO SCH (09:22)
[2019-04-17] MEDS: CLOPIDOGREL 75 MG TABLET PO SCH (09:22)
[2019-04-17] MEDS: FUROSEMIDE 40 MG TABLET PO SCH (09:22)
[2019-04-18 06:11] LABS: Basophils % 0.5 % (0.0-0.8); Eosinophils # 0.2 10*3/uL (0.0-0.87); Hematocrit 30.7 VOL% (42.0-52.0); Hemoglobin 10.3 GM/DL (14.0-18.0); Immature Granulocytes % 1.2 %; Immature Granulocytes Absolute 0.09 #; Lymphocytes # 0.9 10*3/uL (1.4-4.0); Lymphocytes % 11.5 % (21.2-54.2); Mean Corpuscular HGB Conc 33.6 GM/DL (32-36); Mean Platelet Volume 9.1 FL (9.6-12.0); Monocytes % 13.1 % (1.7-12.7); Neutrophils % 70.7 % (38.7-73.9); Platelet Count 281 T/CUMM (130-400); Red Blood Count 3.61 MC/CUMM (3.8-5.5); Red Cell Distribution Width 14.7 % (9.3-17.3); White Blood Count 7.7 T/CUMM (4-12)
[2019-04-18 06:31] LABS: Calcium 8.1 MG/DL (8.5-10.1); Osmolality,Calculated 261.7 MOS/KG (273-304)
[2019-04-18] MEDS: METOPROLOL TARTRATE 25 MG TABLET PO SCH ×2 (09:45→21:11)
[2019-04-18] MEDS: LANSOPRAZOLE ODT 30 MG TABLET PO SCH (09:45)
[2019-04-18] MEDS: CLOPIDOGREL 75 MG TABLET PO SCH (09:45)
[2019-04-18] MEDS: FUROSEMIDE 40 MG TABLET PO SCH (09:46)
[2019-04-18] MEDS ORDERED: FUROSEMIDE 20 MG/2 ML VIAL IV ONE (10:41)
[2019-04-18] MEDS ORDERED: AMIODARONE INJ 450 MG in DEXTROSE 5% 241 ML IV SCH (12:00)
[2019-04-18] MEDS ORDERED: DIGOXIN 0.5 MG/2 ML AMP IV ONE (12:50)
[2019-04-18] MEDS ORDERED: POTASSIUM CHLORIDE 20 MEQ TABLET PO PRN (15:22)
[2019-04-18] MEDS: AMIODARONE INJ 450 MG in DEXTROSE 5% 241 ML IV SCH (18:20)
[2019-04-18] MEDS: EZETIMIBE 10 MG TABLET PO SCH (21:11)
[2019-04-18] MEDS: TAMSULOSIN 0.4 MG CAPSULE PO SCH (21:11)
[2019-04-18] MEDS: ENOXAPARIN 40 MG/0.4 ML SYRINGE SUBCUT SCH (21:13)
[2019-04-19] MEDS: FUROSEMIDE 40 MG TABLET PO SCH (08:31)
[2019-04-19] MEDS: LANSOPRAZOLE ODT 30 MG TABLET PO SCH (08:31)
[2019-04-19] MEDS: METOPROLOL TARTRATE 25 MG TABLET PO SCH ×2 (08:31→21:34)
[2019-04-19] MEDS: CLOPIDOGREL 75 MG TABLET PO SCH (08:31)
[2019-04-19] MEDS: AMIODARONE INJ 450 MG in DEXTROSE 5% 241 ML IV SCH (09:46)
[2019-04-19] MEDS: ASCORBIC ACID 500 MG TABLET PO SCH ×2 (11:54→21:36)
[2019-04-19] MEDS: AMIODARONE 200 MG TABLET PO SCH ×2 (11:54→21:36)
[2019-04-19] MEDS: ENOXAPARIN 40 MG/0.4 ML SYRINGE SUBCUT SCH (21:36)
[2019-04-19] MEDS: EZETIMIBE 10 MG TABLET PO SCH (21:37)
[2019-04-19] MEDS: TAMSULOSIN 0.4 MG CAPSULE PO SCH (21:37)
[2019-04-20 05:11] LABS: Calcium 8.7 MG/DL (8.5-10.1); Osmolality,Calculated 263.5 MOS/KG (273-304); Risk Ratio 3.14; VLDL CHOLESTEROL 15.4 MG/DL
[2019-04-20] MEDS: ASCORBIC ACID 500 MG TABLET PO SCH (08:58)
[2019-04-20] MEDS: CLOPIDOGREL 75 MG TABLET PO SCH (08:58)
[2019-04-20] MEDS: LANSOPRAZOLE ODT 30 MG TABLET PO SCH (08:58)
[2019-04-20] MEDS: AMIODARONE 200 MG TABLET PO SCH (08:58)
[2019-04-20] MEDS: METOPROLOL TARTRATE 25 MG TABLET PO SCH (08:58)
[2019-04-20] MEDS: FUROSEMIDE 40 MG TABLET PO SCH (08:59)
[2019-04-20 12:06] VITALS: BP 90/56
[2019-04-20] MEDS ORDERED: APIXABAN 5 MG TABLET PO SCH (12:30)
[2019-06-06 06:24] LABS: Ovalocytes Few; Platelet Estimate Adequate
== END 2019-04-20 15:20 | disposition home health service (06) | DRG 309 ==
LOC: N.EDINP 18:21 → N.ED 18:21 → SUATTDRO 20:28 → N.TELES 21:40 → N.ICU 04-18 14:18 → N.TELEN 04-19 17:38
PROVIDERS: ADMIT Internal Medicine; ATTEND Internal Medicine